=== PATIENT | male | born 1970 | race Caucasian/White ===

== ENCOUNTER 2023-04-18 07:13 | Emergency (ER) | payer BC, SELFPAY ==
[2023-04-18 07:17] VITALS: BP 176/128
--- NOTE | 2023-04-18 07:49 | ED.GENMED ---
History of Present Illness
General
Chief Complaint: Heart Rate Problem
Source: patient
Exam Limitations: none
Time Seen by Provider: 04/18/23 07:37
Travel History
Have you had any contact with someone who has COVID-19?: No
Do you have any symptoms of coronavirus? Fever > 100 degrees, chills, cough, shortness of breath, sore throat, loss of taste or smell, muscle aches, or headache?: No
History of Present Illness
History of Present Illness:
52-year-old male presents with onset of left-sided chest pain that radiates to his scapula on the left side and down his left arm. He feels that he cannot take a deep breath. This is associated with palpitations. He notes a chronic cough since
having COVID 4 years ago. He denies any recent travel or surgery. No leg swelling or calf. He has a history of hypertension hyperlipidemia. No recent fever. No other complaints at this time
Past History
Past History
ED Past Medical History: HTN (Borderline)
ED Past Surgical History: Orthopedic (History of shoulder surgery)
Social History
Personal:
Living: with family
Employment: Employed
Phy Exam
Physical Exam
Physical Exam:
General patient is well-appearing no respiratory distress nontoxic
HEENT is normocephalic atraumatic
Heart is regular rate and rhythm
Lungs are clear without wheeze or rales
Extremities are without cyanosis or edema
Skin is without rash or lesion
Vascular shows 2+ radial and dorsalis pedis pulses bilaterally
Course
Orders/Labs/Results
Orders:
Orders
04/18/23 07:21
Electrocardiogram (*1) Urgent
Reason for Study: Chest Pain
EKG- Treatment ONCE
04/18/23 07:50
CT Chest Pe Study Urgent
Comment:
Reason For Exam: pleuritic chest and scapular pain
04/18/23 07:52
Complete Blood Count/With Diff Urgent
Comprehensive Metabolic Panel Urgent
TSH Reflex To Free T4 Urgent
Troponin I Urgent
Abnormal Lab Results
04/18/23
07:52
Monocytes % 10.8 H %
(1.7-9.3)
Total Bilirubin 2.5 H mg/dl
(0.2-1.3)
04/18/23 07:52
04/18/23 07:52
Vital Signs
Initial and Last Documented VS:
Initial Vital Signs
Temp Pulse Resp BP Pulse Ox
98.0 F 88 18 176/128 99
04/18/23 07:17 04/18/23 07:17 04/18/23 07:17 04/18/23 07:17 04/18/23 07:17
Last Documented Vital Signs
Temp Pulse Resp BP Pulse Ox
98.0 F 65 11 177/106 99
04/18/23 07:17 04/18/23 09:00 04/18/23 09:00 04/18/23 09:00 04/18/23 07:17
MDM/Problems Addressed
Differential Diagnosis Includes:
Chest pain with radiation to the scapula and left arm slightly pleuritic in nature. Consider PE versus ACS versus dissection. Also has palpitations. Will check for arrhythmias on the monitor EKG shows sinus rhythm. Will check troponin and TSH as
well
*Critical Care Note
Total Time (30-74mins, 75-104mins- exclusive of procedures): Not Applicable
Update Note
Update Note:
Workup here essentially negative with undetectable troponin, PE study negative for acute findings. TSH normal. No arrhythmias or PVCs on monitor. Patient's blood pressure is slightly high he has a history of this. His family doctor is adjusting
medications. I recommend he continue to do so. Will refer to cardiology. Patient prefers to follow-up with [facility] [facility].
ED Attending Note
-
Portions of this chart may have been created with voice recognition software.� Occasional wrong word or��sound alike� substitutions may have occurred due to the inherent limitations of voice recognition software.
Discharge Plan
Departure
Patient Disposition: Home (Routine Discharge)
Date of Disposition: 04/18/23
Time of Disposition: 09:43
Patient with high blood pressure during this ER visit?: No
Discharge Problem:
Chest pain
Instructions: Chest Pain DCA Follow Up
Prescriptions:
No Action
ondansetron 4 MG tablet,disintegrating
4 mg PO TIDPRN PRN (Reason: nausea) Qty: 10 0RF
hydrocodone-acetaminophen [Vicodin] 1 EACH tablet
1 ea PO Q6HPRN PRN (Reason: pain) Qty: 0 0RF
Referrals:
Judi Wells MD [Family Provider] -
Activity Restrictions/Additional Instructions:
Please follow-up with family doctor and/or cardiology for further evaluation. As noted, your blood pressure was elevated today. You may need to adjust your dose or consider a different agent. Cardiology team should be calling you for follow-up
Interventions
Interventions:
*Risk Screen - Suicide Last Done: 04/18/23 07:22
*General Assessment Last Done: 04/18/23 07:22
*Neglect/Abuse Screening Last Done: 04/18/23 07:22
*ED COVID-19 Vaccine History Last Done: 04/18/23 07:53
ED- Cardiac Assessment Last Done: 04/18/23 07:53
ED- Pulmonary Assessment Last Done: 04/18/23 07:53
[2023-04-18 08:00] LABS: % Basophils 0.7 % (0-2); % Eosinophils 0.7 % (0-6); % Lymphocytes 29.5 % (20.5-51.1); % Monocytes 10.8 % (1.7-9.3); % Neutrophils 58.3 % (42.2-75.2); Absolute Lymphocytes 1.7 10^3/uL (1.2-3.4); Absolute Monocytes 0.6 10^3/uL (0.1-0.6); Absolute Neutrophils 3.3 10^3/uL (1.4-6.5); Hemoglobin 16.7 g/dL (13.0-18.0); Mean Corp Hgb Conc. 36.3 g/dL (33.0-37.0); Mean Corpuscular Volume 85.5 fL (80.0-94.0); Mean Platelet Volume 9.3 fL (7.4-10.4); Nucleated Red Blood Cells % 0 % (-); Platelet Count 228 10^3/uL (130-400); Red Blood Cell Count 5.38 10^6/uL (4.70-6.10); Red Cell Dist. Width 12.2 % (11.5-14.5); White Blood Cell Count 5.7 10^3/uL (4.8-10.8)
[2023-04-18 08:04] VITALS: BP 167/107
[2023-04-18 08:12] LABS: ALT (SGPT) 35 U/L (0-50); AST (SGOT) 35 U/L (17-59); Albumin 4.4 g/dl (3.5-5.0); Alkaline Phosphatase 80 U/L (38-126); Blood Urea Nitrogen 15 mg/dl (9-20); Calcium 9.2 mg/dl (8.4-10.2); Carbon Dioxide 26 mmol/L (22-30); Chloride 106 mmol/L (98-107); Glucose 99 mg/dl (70-99); Potassium 3.8 mmol/L (3.5-5.1); Sodium 137 mmol/L (135-145); Total Bilirubin 2.5 mg/dl (0.2-1.3); Total Protein 7.1 g/dl (6.3-8.2); eGFR > 60.00
[2023-04-18 08:21] LABS: Troponin I 0.015 ng/ml
[2023-04-18 08:42] LABS: TSH Reflex To Free T4 1.94 uIU/ml (0.47-4.68)
[2023-04-18 09:00] VITALS: BP 177/106
== END 2023-04-18 10:03 | disposition home or self-care (01) ==
LOC: EMR 07:13
PROVIDERS: Physician Assistant; EMERGENCY PHYSICIAN Emergency Medicine; FAMILY PHYSICIAN Internal Medicine
DX: R07.9 Chest pain, unspecified (principal); R00.2 Palpitations; R05.3 Chronic cough
CPT/HCPCS: 99285; 71275; 80053; 84443; 84484; 85025; 93005; Q9967

== ENCOUNTER → 2023-04-30 13:43 | Outpatient (REF) | payer BC, SELFPAY | LOC: RAD 13:43 | PROVIDERS: ATTENDING PHYSICIAN Internal Medicine Cardiovascular Disease; FAMILY PHYSICIAN Internal Medicine | DX: I10 Essential (primary) hypertension (principal) | CPT/HCPCS: 93975 ==

== ENCOUNTER → 2023-05-15 14:41 | Outpatient (REF) | payer BC, SELFPAY | LOC: RCS 14:41 | PROVIDERS: ATTENDING PHYSICIAN Internal Medicine Cardiovascular Disease; FAMILY PHYSICIAN Internal Medicine | DX: I10 Essential (primary) hypertension (principal) | CPT/HCPCS: 93306 ==

== ENCOUNTER → 2023-05-21 14:57 | Outpatient (REF) | payer BC, SELFPAY | LOC: HWRAD 14:57 | PROVIDERS: ATTENDING PHYSICIAN Internal Medicine Cardiovascular Disease; FAMILY PHYSICIAN Internal Medicine | DX: I10 Essential (primary) hypertension (principal) | CPT/HCPCS: 74177; Q9967 ==

== ENCOUNTER → 2023-07-04 07:31 | Outpatient (REF) | payer BC, SELFPAY | LOC: DHCBC/DCA 07:31 | PROVIDERS: ATTENDING PHYSICIAN Internal Medicine Cardiovascular Disease; FAMILY PHYSICIAN Internal Medicine | DX: E78.2 Mixed hyperlipidemia (principal); I10 Essential (primary) hypertension | CPT/HCPCS: 78452; 93017; A9500 ==

== ENCOUNTER → 2023-08-16 15:55 | Outpatient (REF) | payer BC, SELFPAY | LOC: RAD 15:55 | PROVIDERS: ATTENDING PHYSICIAN Internal Medicine | DX: M54.41 Lumbago with sciatica, right side (principal); G89.29 Other chronic pain | CPT/HCPCS: 72110 ==

== ENCOUNTER → 2023-10-01 09:04 | Outpatient (REF) | payer BC, SELFPAY | LOC: RAD 09:04 | PROVIDERS: ATTENDING PHYSICIAN Orthopaedic Surgery Sports Medicine; FAMILY PHYSICIAN Internal Medicine | DX: S86.911A Strain of unspecified muscle(s) and tendon(s) at lower leg level, right leg, initial encounter (principal); R60.0 Localized edema | CPT/HCPCS: 93971 ==